=== PATIENT | female | born 1970 | race Two or more races ===

== ENCOUNTER 2016-10-27 12:00 | Emergency (ER) | payer OTHER ==
[~2016-10-27] VITALS: Ht 162.6 cm; Wt 79.4 kg
[2016-10-27 12:11] VITALS: BP 139/79
[2016-10-27] MEDS ORDERED: FLUORESCEIN SODIUM OPHTH 1 EA STRIP ONE (12:26)
[2016-10-27] MEDS ORDERED: TETRACAINE HCL/PF 0.5% UD 2 ML BOTTLE ONE (12:27)
[2016-10-27] MEDS: FLUORESCEIN SODIUM OPHTH 1 EA STRIP OP STA (12:50)
[2016-10-27] MEDS: TETRACAINE HCL/PF 0.5% UD 2 ML BOTTLE OP ONE (12:50)
== END 2016-10-27 13:00 | disposition home or self-care (01) ==
LOC: ER 12:02
DX: H57.8 Other specified disorders of eye and adnexa (principal); B00.9 Herpesviral infection, unspecified
CPT/HCPCS: 99283; A4606; Z7610

== ENCOUNTER 2018-06-27 15:11 | Emergency (ER) | payer OTHER ==
[~2018-06-27] VITALS: Ht 160 cm; Wt 68.0 kg
--- NOTE | 2018-06-27 15:30 | NUR ---
sent from urgent care c/o acute upper abdominal pain since this afternoon. alert and oriented x 4, verbally responsive. on room air, breathing evenly and unlabored. connected to the monitor, and puls eox. kept comfortable, will continue to monitor accordingly.
[2018-06-27] MEDS ORDERED: PANTOPRAZOLE 40 MG VIAL ONE (15:58)
[2018-06-27] MEDS ORDERED: MORPHINE SULFATE INJ 4 MG/ML DISP.SYRIN ONE (15:58)
[2018-06-27] MEDS ORDERED: ONDANSETRON HCL/PF 4 MG/2 ML VIAL ONE (15:58)
[2018-06-27] MEDS ORDERED: SUCRALFATE 1 G TABLET ONE (15:58)
[2018-06-27] MEDS ORDERED: PANTOPRAZOLE 40 MG VIAL IV ONE (16:00)
[2018-06-27] MEDS ORDERED: MORPHINE SULFATE INJ 2 MG/ML DISP.SYRIN IV ONE (16:00)
[2018-06-27] MEDS ORDERED: SUCRALFATE 1 G TABLET PO ONE (16:00)
[2018-06-27] MEDS ORDERED: IV NS 0.9% 500 ML BAG IV ONE (16:00)
[2018-06-27] MEDS ORDERED: ONDANSETRON HCL/PF 4 MG/2 ML VIAL IVP ONE (16:00)
[2018-06-27 16:04] LABS: BASOPHILS % (AUTO) 0.3 % (0.0-2.0); EOSINOPHILS % (AUTO) 0.1 % (0.0-6.0); HEMATOCRIT 39 % (33-45); HEMOGLOBIN 13.1 g/dL (11.5-14.8); LYMPHOCYTES # (AUTO) 0.9 /CMM (0.8-4.8); LYMPHOCYTES % (AUTO) 8.4 % (20.0-44.0); MEAN CORPUSCULAR HGB CONC 34 g/dl (31.0-36.0); MEAN CORPUSCULAR VOLUME 95 fL (82-100); MONOCYTES # (AUTO) 0.6 /CMM (0.1-1.30); NEUTROPHILS % (AUTO) 85.2 % (43.0-81.0); PLATELET COUNT (AUTO) 260 /CMM (150-450); RED BLOOD CELL COUNT(AUTO) 4.08 MIL/uL (4.0-5.2); WHITE BLOOD COUNT (AUTO) 10.6 K/uL (4.3-11.0)
[2018-06-27 16:14] LABS: CALCIUM, SERUM 9.2 mg/dL (8.5-10.1); CARBON DIOXIDE 27 mmol/L (21-32); CHLORIDE 105 mmol/L (98-107); CREATININE 0.7 mg/dL (0.6-1.3); GLUCOSE 114 mg/dL (74-106); POTASSIUM 3.9 mmol/L (3.5-5.1); SODIUM SERUM 140 mmol/L (136-145); UREA NITROGEN, BLOOD 18 mg/dL (7-18)
--- NOTE | 2018-06-27 16:16 | NUR ---
educational technology coordinator at bedside.
[2018-06-27 16:25] LABS: ALANINE AMINOTRANSFERASE 50 U/L (12-78); ALKALINE PHOSPHATASE 115 U/L (46-116); ASPARTATE AMINOTRANSFERASE 58 U/L (15-37); BILIRUBIN,DIRECT 0.3 mg/dL (0.0-0.2); BILIRUBIN,TOTAL 0.9 mg/dL (0.2-1.0); LIPASE 132 U/L (73-393)
[2018-06-27 16:58] VITALS: BP 125/82
--- NOTE | 2018-06-27 16:59 | NUR ---
Patient discharged to home in stable condition. Written and verbal after care instructions given. Patient verbalizes understanding of instruction.IV removed. Catheter intact and site benign. Pressure and 4x4 applied to site. No bleeding noted.
== END 2018-06-27 16:59 | disposition home or self-care (01) ==
LOC: ER 15:15
DX: K80.20 Calculus of gallbladder without cholecystitis without obstruction (principal); K21.9 Gastro-esophageal reflux disease without esophagitis; Z91.018 Allergy to other foods; Z60.2 Problems related to living alone
CPT/HCPCS: 36415; 71045; 76705; 80048; 80076; 83690; 84484; 85025; 93005; 96374; 96375; 99284; A4606; C9113; J2270; J2405; J7040; Z7610